=== PATIENT | male | born 1975 | race Caucasian/White ===

== ENCOUNTER → 2018-03-26 | Emergency (ER) | payer OTHER ==
[~2018-03-26] VITALS: Ht 157.5 cm; Wt 72.6 kg
[~2018-03-26] MED LIST: ALBUTEROL0.63 MG/3 IH; LEVAQUIN750 MG PO; MEDROLPACK PO; OSEL75CA PO
== END | disposition left against medical advice (07) ==
LOC: ER 23:35
DX: Z53.20 Procedure and treatment not carried out because of patient's decision for unspecified reasons (principal)

== ENCOUNTER → 2019-06-06 | Emergency (ER) | payer OTHER ==
[~2019-06-06] VITALS: Ht 167.6 cm; Wt 72.6 kg
== END | disposition left against medical advice (07) ==
LOC: ER 18:05
DX: Z53.20 Procedure and treatment not carried out because of patient's decision for unspecified reasons (principal)

== ENCOUNTER 2021-08-09 12:44 | Emergency (ER) | payer OTHER ==
[~2021-08-09] VITALS: Ht 167.6 cm; Wt 74.8 kg
[2021-08-09] MEDS ORDERED: KETO10TA2 PO (16:01)
== END 2021-08-09 16:24 | disposition home or self-care (01) ==
LOC: ER 12:44
DX: S42.91XA Fracture of right shoulder girdle, part unspecified, initial encounter for closed fracture (principal); X58.XXXA Exposure to other specified factors, initial encounter; Y92.89 Other specified places as the place of occurrence of the external cause

== ENCOUNTER 2023-03-31 09:45 | Emergency (ER) | payer OTHER ==
[~2023-03-31] VITALS: Ht 167.6 cm; Wt 72.6 kg
[~2023-03-31 09:45] MED LIST changes: +KETO10TA2 PO
[2023-03-31] MEDS ORDERED: MOBIC7.5 MG PO (11:15)
== END 2023-03-31 11:35 | disposition home or self-care (01) ==
LOC: ER 09:45
DX: S79.912A Unspecified injury of left hip, initial encounter (principal); W18.30XA Fall on same level, unspecified, initial encounter; Y93.9 Activity, unspecified; Y92.9 Unspecified place or not applicable; Y99.9 Unspecified external cause status

== ENCOUNTER 2024-07-04 01:24 | Emergency (ER) | payer OTHER ==
[~2024-07-04] VITALS: Ht 165.1 cm; Wt 65.8 kg
[~2024-07-04 01:24] MED LIST changes: +MOBIC7.5 MG PO
[2024-07-04 02:43] LABS: HEMATOCRIT 30.1 % (39.0-48.0); HEMOGLOBIN 10.4 g/dL (13-16.00); MEAN CELL VOLUME 99.4 fL (80.0-100.00); MEAN CORPUSCULAR HEMOGLOBIN 34.4 pg (27.00-32.0); MEAN CORPUSCULAR HGB CONC 34.5 g/dl (32.0-36.0); RED BLOOD COUNT 3.03 M/uL (4.00-6.00); RED CELL DISTRIBUTION WIDTH 15.6 % (11.5-14.5)
[2024-07-04 02:55] LABS: PLATELET COUNT 113 K/uL (150-450)
[2024-07-04 03:03] LABS: ALBUMIN 3.2 gm/dL (3.4-5.0); BILIRUBIN TOTAL 1.62 mg/dL (0.3-1.2); CALCIUM 8.8 mg/dL (8.5-10.1); CREATININE SERUM 0.84 mg/dL (0.70-1.30); GFR 96.72; GLOBULINA 5.5 G/DL (2.4-3.5); POTASSIUM 3.18 mEq/L (3.5-5.1); TOTAL PROTEIN 8.7 gm/dL (6.4-8.2)
[2024-07-04 10:10] LABS: ALBUMIN 3.4 gm/dL (3.4-5.0); BILIRUBIN TOTAL 1.79 mg/dL (0.3-1.2); BILIRUBIN,CONJUGATED 0.91 mg/dL (0.0-0.2); BILIRUBIN,UNCONJUGATED 0.88 mg/dL (0.0-0.6); MAGNESIUM 1.7 mg/dL (1.8-2.4); PHOSPHOROUS 4.7 mg/dL (2.5-4.9); TOTAL PROTEIN 9.5 gm/dL (6.4-8.2)
[2024-07-04 11:11] LABS: PH,URINE 5.5 (5.0-8.0); URINE APPEARANCE Clear; URINE BILIRRUBIN Negative (NEGATIVE); URINE BLOOD Negative; URINE COLOR Yellow; URINE GLUCOSE Negative (NEGATIVE); URINE KETONE Negative (NEGATIVE); URINE LEUKOCYTE Negative; URINE NITRATE Negative; URINE PROTEIN Negative (NEGATIVE)
[2024-07-04 11:14] LABS: URINE BACTERIA 7.5 uL (0.0-1933); URINE EPITHELIAL CELLS 2.9 uL (0.0-38.8)
[2024-07-04 11:23] LABS: URINE WBC 0.9 uL (0.0-23.2)
[2024-07-04 11:31] LABS: COCAINE NEGATIVE (NEGATIVE); METHADONE NEGATIVE (NEGATIVE); OPIATES NEGATIVE (NEGATIVE); THC ( Cannabinoids) NEGATIVE (NEGATIVE)
[2024-07-04] MEDS ORDERED: POTASSIUM CHLORIDE 10 MEQ CAPSULE PO STA (13:35)
[2024-07-04] MEDS ORDERED: MAGNESIUM HYDROXIDE 400 MG/5 ML ML PO ONE (15:00)
[2024-07-04] MEDS ORDERED: POTASSIUM CHLORIDE 10 MEQ CAPSULE PO ONE (15:00)
[2024-07-04 17:15] LABS: CREATININE SERUM 0.72 mg/dL (0.70-1.30); GFR 115.55; MAGNESIUM 1.8 mg/dL (1.8-2.4)
[2024-07-04 17:41] LABS: POTASSIUM 5.12 mEq/L (3.5-5.1)
[2024-07-04] MEDS ORDERED: 0.9 % SODIUM CHLORIDE 1,000 ML IV ONE (18:15)
[2024-07-04] MEDS ORDERED: THIAMINE HCL 100 MG TABLET PO ONE (18:15)
[2024-07-04] MEDS ORDERED: MULTIVIT INFUSN,ADULT 4,VIT K 10 ML VIAL IV ONE (18:15)
[2024-07-04] MEDS ORDERED: LORazepam 2 MG/ML VIAL IV ONE (18:15)
[2024-07-04] MEDS ORDERED: FOLIC ACID 1 MG TABLET PO ONE (18:15)
== END 2024-07-04 21:34 | disposition designated cancer center or children's hospital (05) ==
LOC: ER 01:24
PROVIDERS: Emergency Medicine
DX: F10.10 Alcohol abuse, uncomplicated (principal); Z71.41 Alcohol abuse counseling and surveillance of alcoholic; Z20.822 Contact with and (suspected) exposure to COVID-19